=== PATIENT | female | born 1995 | race Caucasian/White ===

== ENCOUNTER 2020-10-09 15:05 | Outpatient (RCR) | payer OTHER, MEDICAID, SELFPAY ==
--- NOTE | 2020-10-09 15:15 | PT.OIE ---
Current Diagnoses Other female genital prolapse (10/09/20) Encounter for supervision of normal , unspecified, unspecified trimester (10/09/20) Visit Care Team Role Provider Type MOO Bowman Attending Provider Non-Staff Family Provider Primary Care Provider Referring Provider Specialty: Obstetrics Address: [address] [place] [address], [id number] Email: Physical Therapy Initial Evaluation PT-OP-A Visit Information Start: 10/09/20 09:01 Freq: Status: Active Protocol: Document 10/09/20 15:15 [facility] (Rec: 10/09/20 17:11 [facility] [email or web address]) Out-Patient Physical Therapy Visit Information Visit Information Visit Type Initial Evaluation Visit Start Time 15:15 Visit Stop Time 16:00 Total Visit Minutes 45 Visit Number 1 PT-OP-B Current Condition Start: 10/09/20 09:01 Freq: Status: Active Protocol: Document 10/09/20 15:15 [facility] (Rec: 10/09/20 15:57 [facility] [id number]) Current Condition History of Current Condition Onset Date 2017 symptoms began after of her daugher s/p vaginal delivery Current Complaints pelvic pressure and heaviness, pelvic pain History of Current Condition approx 3-4 months following the of her first daughter she began feeling symptoms, symptoms went away, she had been bleeding with bowel movements, a rectocele was found and she was sent for a colonoscopy. Interal hemmorhoids were found on colonoscopy. After about 6 months symptoms went away. Now she is 32 weeks and she feels pelvic pressure, she cant get comfortable and she dreads having to switch sides as it hurts. Bending over to grap things hurt, getting up from a chair is painful. Bowel movements make her feel like her bowels are descending. She notes bowel movements are only 2 times per week. SHe notes c/o popping in her pelvis with walking. She describes pain at her pubic bone and walking increases pain. Future Testing and Treatments Planned pt would like to return to PT Treatment Goals Patient/Caregiver Goals treatment goals are to reduce pain and pelvic pressure and stabilize post Current Functional Impairments (Reported) Functional Limitations- ADL's pain with activities that include bending forward Functional Limitations- Other pain with rolling in bed or with a change of positions PT-OP-J Posture/Palpation/Skin Start: 10/09/20 09:01 Freq: Status: Active Protocol: Document 10/09/20 15:15 [facility] (Rec: 10/15/20 10:50 [facility] [email or web address]) Posture Evaluation Position Standing Evaluation View Lateral L-Spine Posture Increased Lordosis Shoulder Posture (L) Forward,(R) Forward Comments Posture Comments pt stands with a increased lumbar lordosis with , she does have slight sciolosis and weightsifts off her left leg due to pubic pain Palpation Assessment Location R PSIS Palpation Location R PSIS Palpation Findings Tenderness pubic symphysis Palpation Findings Tenderness Palpation Details tenderness to palpation at the midline of the pubic symphysis PT-OP-K Range of Motion Start: 10/15/20 10:50 Freq: Status: Active Protocol: Document 10/09/20 15:15 [facility] (Rec: 10/15/20 10:51 [facility] [email or web address]) Lumbar Spine Range of Motion Lumbar Spine Active Testing Position Standing Flexion 50 ROM Limitations Soft Tissue Tightness,Pain Comments increased lumbar lordosis, paraspinal tightness limiting lumbar flexion activities. PT-OP-M Strength Start: 10/09/20 09:01 Freq: Status: Active Protocol: Document 10/09/20 15:15 [facility] (Rec: 10/15/20 10:50 [facility] [email or web address]) Trunk Strength Trunk Manual Muscle Testing Flexion 2+ Poor+ Core Stabilization + April test on the right for SI unlocking, stretch weakness of the transverse abdominal muscles in standing PT-OP-Q Treatments Start: 10/09/20 09:01 Freq: Status: Active Protocol: Document 10/09/20 15:15 [facility] (Rec: 10/15/20 10:50 [facility] [email or web address]) Therapeutic Exercises Other Exercises ball squeeze with pelvic floor recruitment Reps/Minutes x 10 reps Quadruped cat cow Reps/Minutes x 10 reps quadruped TA facilitation Reps/Minutes x 10 reps PT-OP-T Assessment and Plan Start: 10/09/20 09:01 Freq: Status: Active Protocol: Document 10/09/20 15:15 [facility] (Rec: 10/15/20 10:50 [facility] [email or web address]) Physical Therapy Assessment Goals pt is able to return to PT for pelvic floor rehabilitation Impairment pelvic pressure and pelvic floor weakness, decreased core stability Recoating Machine Operator Goal (LTG) Pt is able to return to PT post for pelvic floor rehabilitation and core stabilization exercises LTG Duration 6 weeks or following MD clearance pt is educated in a HEP to address SI instability and pelvic pressure Impairment related SI instability, pelvic pressure Short Term Goal (STG) pt is educated in exercises she can do for the remainder of her to help stabilize her SI joint and decrease tightness of her lumbar spine. She is shown a SI belt and how to wear it to help support her pelvis. STG Duration 1 week Assessment Summary Assessment Holly is a 25 year old female 32 weeks with her second baby who describes pelvic pressure and pain. She has a difficult time voiding and switching positions or bending. She is only having a bowel movement 2 times per week. She also describes pubic pain that is worse on the left. She describes popping of her pelvis with walking. Pt reports she did get diagnosed with a rectocele after her first deliver but this had resolved until now. This is the only visit that oHlly has scheduled prior to her delivery and she is wanting to set up PT post so that we can do a pelvic floor assessment and work on pelvic floor rehab. With examination today Holly is unlockign in her SI joint. She has a slight pubis symphysis seperation. She stands in a anterior pelvic tilt and her lumbar paraspinals are in a shortened position. Holly was educated on SI instability and was shown a SI belt. I did give her a few exercises for that help to stabilize the SI joint and reduce her lumbar lordosis. She was shown how to contract her pelvic floor and transverse abdominals to help with stabilization. She was also shown a sidelying labor position that can help to decrease strain to the pelvic floor with delivery. Holly is a good candidate for PT in the post period for core stabilization and pelvic floor rehabilitation Physical Therapy Plan Frequency and Duration Frequency of Treatment 1x/Week Duration of Treatment 8 Plan of Care Start Date 10/09/20 Plan of Care End Date 11/26/20 Therapeutic Interventions Therapeutic Interventions Home Exercise Program,Manual Therapy,Neuromuscular Re- education,Patient/Caregiver Education,Self-Care/Home Management,Soft Tissue Mobilization,Therapeutic Exercises Modalities Biofeedback Next Visit Focus/Plan Next Note Type Treatment Note Next Visit Plan pt to return after her 6 week check up to begin pelvic floor and core training rehabilitation
--- NOTE | 2020-10-15 11:11 | PT.OPPOC ---
Physical, Occupational & Speech Therapy At [facility] Current Diagnoses Other female genital prolapse (10/09/20) Encounter for supervision of normal , unspecified, unspecified trimester (10/09/20) Visit Care Team Role Provider Type MOO Bowman Attending Provider Non-Staff Family Provider Primary Care Provider Referring Provider Specialty: Obstetrics Address: [address] [place] [address], [facility] Email: Plan Of Care PT-OP-T Assessment and Plan Start: 10/09/20 09:01 Freq: Status: Active Protocol: Document 10/09/20 15:15 [facility] (Rec: 10/15/20 10:50 [facility] [email or web address]) Physical Therapy Assessment Goals pt is able to return to PT for pelvic floor rehabilitation Impairment pelvic pressure and pelvic floor weakness, decreased core stability Track Grinder Goal (LTG) Pt is able to return to PT post for pelvic floor rehabilitation and core stabilization exercises LTG Duration 6 weeks or following MD clearance pt is educated in a HEP to address SI instability and pelvic pressure Impairment related SI instability, pelvic pressure Short Term Goal (STG) pt is educated in exercises she can do for the remainder of her to help stabilize her SI joint and decrease tightness of her lumbar spine. She is shown a SI belt and how to wear it to help support her pelvis. STG Duration 1 week Assessment Summary Assessment Holly is a 25 year old female 32 weeks with her second baby who describes pelvic pressure and pain. She has a difficult time voiding and switching positions or bending. She is only having a bowel movement 2 times per week. She also describes pubic pain that is worse on the left. She describes popping of her pelvis with walking. Pt reports she did get diagnosed with a rectocele after her first deliver but this had resolved until now. This is the only visit that Holly has scheduled prior to her delivery and she is wanting to set up PT post so that we can do a pelvic floor assessment and work on pelvic floor rehab. With examination today Holly is unlocking in her SI joint. She has a slight pubis symphysis separation. She stands in a anterior pelvic tilt and her lumbar paraspinals are in a shortened position. Holly was educated on SI instability and was shown a SI belt. I did give her a few exercises for that help to stabilize the SI joint and reduce her lumbar lordosis. She was shown how to contract her pelvic floor and transverse abdominals to help with stabilization. She was also shown a sidelying labor position that can help to decrease strain to the pelvic floor with delivery. Holly is a good candidate for PT in the post period for core stabilization and pelvic floor rehabilitation Physical Therapy Plan Frequency and Duration Frequency of Treatment 1x/Week Duration of Treatment 8 Plan of Care Start Date 10/09/20 Plan of Care End Date 11/26/20 Therapeutic Interventions Therapeutic Interventions Home Exercise Program,Manual Therapy,Neuromuscular Re- education,Patient/Caregiver Education,Self-Care/Home Management,Soft Tissue Mobilization,Therapeutic Exercises Modalities Biofeedback Next Visit Focus/Plan Next Note Type Treatment Note Next Visit Plan pt to return after her 6 week check up to begin pelvic floor and core training rehabilitation Plan of Care Dates Plan of Care Start Date 10/09/20 Plan of Care End Date 11/26/20 Electronically Signed by: Rhonda Hathaway, PT 10/15/20 1111 Please Sign and Return: I have reviewed this Plan of Care and certify that the skilled therapy services above are required to meet the patient?s needs. Physician Signature Date Printed Name and Credentials Clinical Instructor Signature Printed Name and Credentials
== END 2021-03-17 08:32 ==
LOC: PHYS 15:05
PROVIDERS: Family Provider Nurse Practitioner Obstetrics & Gynecology; PCP Nurse Practitioner Obstetrics & Gynecology; Referring Provider Nurse Practitioner Obstetrics & Gynecology; Visit Provider Nurse Practitioner Obstetrics & Gynecology
DX: Z34.90 Encounter for supervision of normal pregnancy, unspecified, unspecified trimester (principal); N81.89 Other female genital prolapse
CPT/HCPCS: 97161

== ENCOUNTER 2022-04-25 14:48 | Emergency (ER) | payer OTHER, MEDICAID, SELFPAY ==
[2022-04-25 15:00] VITALS: BP 88/55; PULSE 70; RESP 16; TEMP 36.2; O2SAT 99; BMI 22.8
[2022-04-25 15:24] VITALS: PULSE 64; O2SAT 97
[2022-04-25 15:25] VITALS: BP 94/58; PULSE 67; O2SAT 99
[2022-04-25] MEDS: SODIUM CHLORIDE 0.9% 1,000 ML 1000 ML IV (15:25)
--- NOTE | 2022-04-25 15:26 | ED_ITS ---
HPI - Abdominal Pain <MOO Capone - Last Filed: 04/25/22 16:30> General Chief Complaint: Abdominal Pain Stated Complaint: vomiting, abd pain x7 days Time Seen by Provider: 04/25/22 15:15 Source: patient Mode of arrival: Ambulatory History of Present Illness HPI narrative: This is a 27-year-old female presents to the emergency department complaining of vomiting, diarrhea, and states her symptoms worse over the last 2 days. She complains of epigastric pain now, states that her boyfriend and her son have similar symptoms. She denies cough, shortness of breath sore throat but endorses ringing in her ears, dry mouth, not tolerating anything to eat or drink today. She complains of epigastric burning kind of like heartburn. Denies abnormal vaginal discharge, states her last menses was 3 weeks ago, denies pelvic pain, urinary frequency or urgency. She denies any blood in her emesis or her stool. Denies history of abdominal surgery. Denies back pain, flank pain, muscle cramps or dizziness. States that she is felt hot and cold but has not measured a fever. She is an infant Related Data Previous Rx's Medication Instructions Recorded clotrimazole 1 % topical cream 1 applic topical TID #30 grams 04/21/22 mupirocin 2 % topical ointment 1 applic topical TID #22 grams 04/21/22 omeprazole 20 mg capsule,delayed 20 mg PO DAILY #20 caps 04/25/22 release ondansetron 4 mg disintegrating 4 mg PO Q8H PRN nausea and 04/25/22 tablet vomiting #10 tabs Allergies Allergy/AdvReac Type Severity Reaction Status Date / Time INGREDIENT: NO KNOWN - NO Allergy Unknown Uncoded 04/25/22 15:06 KNOWN DRUG ALLERGY Review of Systems <MOO Capone - Last Filed: 04/25/22 16:30> Review of Systems ROS Unobtainable: All systems reviewed & are unremarkable except as noted in HPI and below Patient History <MOO Capone - Last Filed: 04/25/22 16:30> Social History Smoking Status: Never smoker Smoking Status: Never smoker Substance Use Type: does not use Exam <MOO Capone - Last Filed: 04/25/22 16:30> Narrative Exam Narrative: Reviewed vitals signs and nursing notes. General: cooperative, in no acute distress, well groomed, lying in bed, appears tired, HEENT: symmetrical facial expressions, dry mucous membranes, neck is supple CV: regular rate and rhythm, warm extremities Respiratory: Without abnormal breath sounds, normal work of breathing, without tachypnea, hypoxia. GI: abdomen soft, nontender to palpation in all quadrants, no tenderness over bilateral ovaries, no CVAT bilaterally, abdomen is flat, nondistended, without masses, rebound tenderness or CVA tenderness bilaterally. MSK: moves all extremities, neurovascularly intact, no weakness, normal tone Skin: brisk capillary refill, without rash or wound Neuro: normal speech and cognition, A&O x3, ambulatory, clear speech, flat affect Initial Vital Signs Initial Vital Signs: Vital Signs Temperature 97.2 F L 04/25/22 15:00 Pulse Rate 70 04/25/22 15:00 Respiratory Rate 16 04/25/22 15:00 Blood Pressure 88/55 L 04/25/22 15:00 Pulse Oximetry 99 04/25/22 15:00 Oxygen Delivery Method Room Air 04/25/22 15:00 <Pancho García DO - Last Filed: 04/25/22 16:19> Initial Vital Signs Initial Vital Signs: Vital Signs Temperature 97.2 F L 04/25/22 15:00 Pulse Rate 70 04/25/22 15:00 Respiratory Rate 16 04/25/22 15:00 Blood Pressure 88/55 L 04/25/22 15:00 Pulse Oximetry 99 04/25/22 15:00 Oxygen Delivery Method Room Air 04/25/22 15:00 Course <MOO Capone - Last Filed: 04/25/22 16:30> Orders Ordered: ED Orders 04/25/22 15:22 Complete Blood Count AUTO DIFF Stat Comprehensive Metabolic Panel Stat Lipase Stat 04/25/22 15:28 Magnesium Stat 04/25/22 15:44 Respiratory Panel (Film Array) Stat Ondansetron HCl (Ondansetron 4 Mg Odt) 4 mg PO NOW PRN PRN Reason: Nausea And Vomiting Ondansetron HCl (Ondansetron 4 Mg/2 Ml Inj) 4 mg IV NOW PRN PRN Reason: Nausea And Vomiting Last Admin: 04/25/22 15:30 Dose: 4 mg Discontinued Medications Sodium Chloride (Normal Saline 0.9%) 1,000 mls @ 1,000 mls/hr IV BOLUS ONE Stop: 04/25/22 16:19 Last Admin: 04/25/22 15:25 Dose: 1,000 mls/hr Documented By: ZENA Pantoprazole Sodium (Pantoprazole 40 Mg Vial) 20 mg IV NOW ONE Stop: 04/25/22 15:42 Last Admin: 04/25/22 15:50 Dose: 20 mg Vital Signs Vital signs: Vital Signs - 8 hr 04/25/22 15:00 04/25/22 15:24 04/25/22 15:25 Temperature 97.2 F L Pulse Rate 70 64 Respiratory Rate 16 Blood Pressure 88/55 L 94/58 L Pulse Oximetry 99 97 Oxygen Delivery Method Room Air 04/25/22 15:25 04/25/22 15:30 04/25/22 15:30 Temperature Pulse Rate 67 71 Respiratory Rate Blood Pressure 99/60 Pulse Oximetry 99 99 Oxygen Delivery Method <Pancho García DO - Last Filed: 04/25/22 16:19> Orders Ordered: ED Orders 04/25/22 15:22 Complete Blood Count AUTO DIFF Stat Comprehensive Metabolic Panel Stat Lipase Stat 04/25/22 15:28 Magnesium Stat 04/25/22 15:44 Respiratory Panel (Film Array) Stat Ondansetron HCl (Ondansetron 4 Mg Odt) 4 mg PO NOW PRN PRN Reason: Nausea And Vomiting Ondansetron HCl (Ondansetron 4 Mg/2 Ml Inj) 4 mg IV NOW PRN PRN Reason: Nausea And Vomiting Last Admin: 04/25/22 15:30 Dose: 4 mg Discontinued Medications Sodium Chloride (Normal Saline 0.9%) 1,000 mls @ 1,000 mls/hr IV BOLUS ONE Stop: 04/25/22 16:19 Last Admin: 04/25/22 15:25 Dose: 1,000 mls/hr Documented By: ZENA Pantoprazole Sodium (Pantoprazole 40 Mg Vial) 20 mg IV NOW ONE Stop: 04/25/22 15:42 Last Admin: 04/25/22 15:50 Dose: 20 mg Vital Signs Vital signs: Vital Signs - 8 hr 04/25/22 15:00 04/25/22 15:24 04/25/22 15:25 Temperature 97.2 F L Pulse Rate 70 64 Respiratory Rate 16 Blood Pressure 88/55 L 94/58 L Pulse Oximetry 99 97 Oxygen Delivery Method Room Air 04/25/22 15:25 04/25/22 15:30 04/25/22 15:30 Temperature Pulse Rate 67 71 Respiratory Rate Blood Pressure 99/60 Pulse Oximetry 99 99 Oxygen Delivery Method MDM - Abdominal Pain <Angle Darnell, HOSPICE REGISTERED NURSE - Last Filed: 04/25/22 16:30> Lab Data 04/25/22 15:22 04/25/22 15:22 Labs: Lab Results 04/25/22 04/25/22 04/25/22 Range/Units 15:22 15:22 15:28 WBC 5.4 (4.5-11.0) X10^3/uL RBC 4.12 (4.0-5.2) X10^6/uL Hgb 12.4 (12.0-16.0) g/dL Hct 36.4 (36-46) % MCV 88.3 (80-100) fL MCH 30.1 (26-34) PG MCHC 34.1 (30-36) % RDW 12.5 (11.6-14.8) % Plt Count 246 (150-400) X10^3/uL Neut % (Auto) 67.2 (50-75) % Lymph % (Auto) 23.5 L (25-40) % [place] % (Auto) 8.4 (3-14) % Eos % (Auto) 0.7 L (2-4) % Baso % (Auto) 0.2 (0-2) % Neut # (Auto) 3600 (7049-1199) /uL Lymph # (Auto) 1300 (3537-3913) /uL [place]lan # (Auto) 500 (0-900) /uL Eos # (Auto) 0 (0-450) /uL Baso # (Auto) 0 (0-100) /uL Sodium 138 (137-145) mmol/L Potassium 3.9 (3.4-5.1) mmol/L Chloride 104 (98-107) mmol/L Carbon Dioxide 25 (22-32) mmol/L BUN 9 (7-17) mg/dL Creatinine 0.59 (0.52-1.04) mg/dL Estimated GFR > 60 (>60) mL/min BUN/Creatinine Ratio 15.3 (6-22) Glucose 88 (70-100) mg/dL Calcium 8.9 (8.4-10.2) mg/dL Magnesium 1.7 (1.6-2.3) mg/dL Total Bilirubin 1.4 H (0.2-1.3) mg/dL AST 22 (14-36) IU/L ALT 21 (<35) IU/L Alkaline Phosphatase 64 (38-126) U/L Total Protein 7.6 (6.3-8.2) g/dL Albumin 4.3 (3.5-5.0) g/dL Globulin 3.3 (1.7-4.1) g/dL Albumin/Globulin Ratio 1.3 (1.0-2.8) Lipase 62 (23-300) U/L Point of care testing: Point of Care Testing Test Results Negative Urine Dip Bedside Urine Glucose Negative Bedside Urine Bilirubin - Negative Bedside Urine Ketone - Negative Urine Specific [place] 1.020 Bedside Urine Occult Blood - Negative Bedside Urine pH 6.0 Bedside Urine Protein - Negative Bedside Urine Urobilinogen - Negative Bedside Urine Nitrite - Negative Bedside Urine Leukocytes - Negative Esterase MDM Narrative Medical decision making narrative: Chief Complaint: Nausea vomiting Independent historian: Patient Differential diagnoses include but are not limited to: Acute viral process, gastritis, gastric ulcer, biliary disease, gastroenteritis, GERD, bowel obstruction, perforated viscus, appendicitis, colitis, diverticulitis, IBD/IBS, intestinal ischemia, obstructive uropathy, acute cystitis, pyelonephritis, ovarian cyst, ectopic , ovarian mass/cyst, torsion, PID Pertinent lab findings reviewed: CBC with mild lymphopenia total bilirubin of 1.4, likely secondary to dehydration, lipase 62 without other abnormalities on her chemistry or elevated liver enzymes, abdomen was nontender to palpation. Respiratory panel is pending, will follow-up and call her if it is positive for COVID, influenza a or B. Urine is negative Basic lab work and IV fluid bolus was ordered as patient has been vomiting today, plan for Zofran, lab work, serial abdominal exams, and reassessment No peritoneal signs on abdominal exam. Patient is now p.o. tolerant. Discussed return precautions, overall her lab work was unremarkable and she feels much better after IV hydration. Serial abdominal exam without increase in abdominal pain. Extensive conversation about ER return precautions and need for close follow-up.I have independently reviewed the patient's vital signs and nursing notes as well as prior records if available. Social considerations that may affect disposition: none Questions are addressed and there is agreement with the plan and for follow-up. Patient is appropriate for outpatient management. MIPS: This encounter doesn't have any diagnosis' associated with MIPS criteria. <Pancho Ricky, DO - Last Filed: 04/25/22 16:19> Lab Data Labs: Lab Results 04/25/22 04/25/22 04/25/22 Range/Units 15:22 15:22 15:28 WBC 5.4 (4.5-11.0) X10^3/uL RBC 4.12 (4.0-5.2) X10^6/uL Hgb 12.4 (12.0-16.0) g/dL Hct 36.4 (36-46) % MCV 88.3 (80-100) fL MCH 30.1 (26-34) PG MCHC 34.1 (30-36) % RDW 12.5 (11.6-14.8) % Plt Count 246 (150-400) X10^3/uL Neut % (Auto) 67.2 (50-75) % Lymph % (Auto) 23.5 L (25-40) % [place] % (Auto) 8.4 (3-14) % Eos % (Auto) 0.7 L (2-4) % Baso % (Auto) 0.2 (0-2) % Neut # (Auto) 3600 (2699-7693) /uL Lymph # (Auto) 1300 (7720-7184) /uL [place] # (Auto) 500 (0-900) /uL Eos # (Auto) 0 (0-450) /uL Baso # (Auto) 0 (0-100) /uL Sodium 138 (137-145) mmol/L Potassium 3.9 (3.4-5.1) mmol/L Chloride 104 (98-107) mmol/L Carbon Dioxide 25 (22-32) mmol/L BUN 9 (7-17) mg/dL Creatinine 0.59 (0.52-1.04) mg/dL Estimated GFR > 60 (>60) mL/min BUN/Creatinine Ratio 15.3 (6-22) Glucose 88 (70-100) mg/dL Calcium 8.9 (8.4-10.2) mg/dL Magnesium 1.7 (1.6-2.3) mg/dL Total Bilirubin 1.4 H (0.2-1.3) mg/dL AST 22 (14-36) IU/L ALT 21 (<35) IU/L Alkaline Phosphatase 64 (38-126) U/L Total Protein 7.6 (6.3-8.2) g/dL Albumin 4.3 (3.5-5.0) g/dL Globulin 3.3 (1.7-4.1) g/dL Albumin/Globulin Ratio 1.3 (1.0-2.8) Lipase 62 (23-300) U/L Point of care testing: Point of Care Testing Test Results Negative Urine Dip Bedside Urine Glucose Negative Bedside Urine Bilirubin - Negative Bedside Urine Ketone - Negative Urine Specific [place] 1.020 Bedside Urine Occult Blood - Negative Bedside Urine pH 6.0 Bedside Urine Protein - Negative Bedside Urine Urobilinogen - Negative Bedside Urine Nitrite - Negative Bedside Urine Leukocytes - Negative Esterase Discharge Plan Departure Patient Disposition: Home Clinical Impression: Viral respiratory illness Vomiting Qualifiers: Vomiting type: unspecified Nausea presence: with nausea Qualified Code(s): R11.2 - Nausea with vomiting, unspecified Gastritis Qualifiers: Gastritis type: other gastritis Chronicity: acute Gastritis bleeding: without bleeding Qualified Code(s): K29.00 - Acute gastritis without bleeding Instructions: Common Cold, DI for Gastritis, DI for Vomiting -- Adult Activity Restrictions/Additional Instructions: *You have been diagnosed with this is most likely a viral illness causing the vomiting. It responded well to the fluid, I think you are mostly dehydrated and having some gastritis symptoms with your epigastric pain. Please use Tums as needed to help coat your stomach, and in the mornings take omeprazole before any food to reduce the acid secretion. Please use Tylenol as needed for fever, p rogress her diet gradually, use Zofran as needed for nausea vomiting, please come back for new or worsening symptoms. We will call you if the viral panel is positive for COVID, influenza, or another viral illness of concern. Thank you for coming in today, I hope you feel better soon. *What to do: *Please continue to take your regular medications as directed. [x ] New medication prescriptions sent to your pharmacy: [ [facility]] [ ] New medication written as a paper prescription [ ] No new medications given *Please follow up with your primary care provider in 2-3 days, call for an appointment. Let them know you were seen in the Emergency Department and that we asked that you be seen for follow-up. We will electronically transmit a record of today's note if your PCP is in our system *If you do not have a primary care provider please contact [phone] to establish care with one of the [facility] primary care providers. *Return to Emergency Department if you should have any new, worsening, or concerning symptoms, such as [fever greater than 101F, chills, worsening pain, persistent vomiting or other bothersome symptoms]. Prescriptions: New omeprazole 20 mg capsule,delayed release(DR/EC) 20 mg PO DAILY Qty: 20 0RF ondansetron 4 mg tablet,disintegrating 4 mg PO Q8H PRN (Reason: nausea and vomiting) Qty: 10 0RF No Action clotrimazole 1 % cream 1 applic topical TID Qty: 30 0RF mupirocin 2 % ointment 1 applic topical TID Qty: 22 0RF Referrals: Samreen Virk ARNP [Primary Care Provider] - Stand Alone Forms: Patient Portal/API <Pancho García, DO - Last Filed: 04/25/22 16:19> [facility]: Dr García Co-Sign Statement: I was available for consultation during this patient's emergency department visit. This chart is signed by myself for administrative purposes only. I did not have direct contact with this patient during this visit. They were seen independently by the APC.
[2022-04-25 15:30] VITALS: BP 99/60; PULSE 71; O2SAT 99
[2022-04-25] MEDS: ONDANSETRON 4 MG/2 ML INJ IV (15:30)
[2022-04-25 15:32] LABS: Add Manual Diff / Slide Review NO; Basophils Absolute Auto 0 /uL (0-100); Basophils Percent Auto 0.2 % (0-2); Eosinophils Absolute Auto 0 /uL (0-450); Eosinophils Percent Auto 0.7 % (2-4); Hematocrit 36.4 % (36-46); Hemoglobin 12.4 g/dL (12.0-16.0); Lymphocytes Absolute Auto 1300 /uL (1100-4500); Lymphocytes Percent Auto 23.5 % (25-40); Mean Corpuscular HGB Conc 34.1 % (30-36); Mean Corpuscular Hemoglobin 30.1 PG (26-34); Mean Corpuscular Volume 88.3 fL (80-100); Monocytes Absolute Auto 500 /uL (0-900); Monocytes Percent Auto 8.4 % (3-14); Neutrophils Absolute Auto 3600 /uL (1500-7000); Neutrophils Percent Auto 67.2 % (50-75); Platelet Count 246 X10^3/uL (150-400); Red Blood Cell Count 4.12 X10^6/uL (4.0-5.2); Red Cell Distribution Width 12.5 % (11.6-14.8); White Blood Cell Count 5.4 X10^3/uL (4.5-11.0)
[2022-04-25 15:47] LABS: Magnesium 1.7 mg/dL (1.6-2.3)
[2022-04-25 15:48] LABS: Alanine Aminotransferase 21 IU/L (<35); Albumin 4.3 g/dL (3.5-5.0); Albumin Globulin Ratio 1.3 (1.0-2.8); Alkaline Phosphatase 64 U/L (38-126); Aspartate Aminotransferase 22 IU/L (14-36); BUN Creatinine Ratio 15.3 (6-22); Bilirubin Total 1.4 mg/dL (0.2-1.3); Blood Urea Nitrogen 9 mg/dL (7-17); Calcium 8.9 mg/dL (8.4-10.2); Carbon Dioxide 25 mmol/L (22-32); Chloride 104 mmol/L (98-107); Estimated Glomerular Filt Rate > 60 mL/min (>60); Globulin 3.3 g/dL (1.7-4.1); Glucose 88 mg/dL (70-100); HEMOLYSIS < 15 (0-50); Lipase 62 U/L (23-300); Potassium 3.9 mmol/L (3.4-5.1); Sodium 138 mmol/L (137-145); Total Protein 7.6 g/dL (6.3-8.2)
[2022-04-25] MEDS: PANTOPRAZOLE 40 MG VIAL 20 MG IV (15:50)
--- NOTE | 2022-04-25 15:56 | PC.NURSE ---
pt states she started feeling sick this week. her and two children were sick a couple weeks ago but now she thinks she has it. pt states she has had vomiting and describes heartburn like symptoms with the vomiting. pt feels worse laying down and states certain smells make her nausea worse. pt does not use control and is currently breast feeding.
[2022-04-25 16:00] VITALS: BP 92/54; PULSE 68; O2SAT 100
[2022-04-25 16:39] LABS: Adenovirus Not Detected (Not Detect)
[2022-04-25 16:40] LABS: B. parapertussis Not Detected (Not Detecte); Bordetella pertussis Not Detected (Not Detecte); Chlamydophila pneumoniae Not Detected (Not Detect); Coronavirus 229E Not Detected (Not Detect); Coronavirus HKU1 Not Detected (Not Detect); Coronavirus NL 63 Not Detected (Not Detect); Coronavirus OC43 Not Detected (Not Detect); Human Metapneumovirus Not Detected (Not Detect); Human Rhinovirus/Enterovirus Not Detected (Not Detect); Influenza A Not Detected (Not Detect); Influenza B Not Detected (Not Detect); Mycoplasma pneumoniae Not Detected (Not Detect); Parainfluenza Virus 1 Not Detected (Not Detect); Parainfluenza Virus 2 Not Detected (Not Detect); Parainfluenza Virus 3 Not Detected (Not Detect); Parainfluenza Virus 4 Not Detected (Not Detect); Respiratory Syncytial Virus Not Detected (Not Detect); SARS- CoV-2 Not Detected (Not Detecte)
== END 2022-04-25 16:49 | disposition home or self-care (01) ==
PROVIDERS: Emergency Medicine; Emergency Provider Nurse Practitioner Critical Care Medicine; Family Provider Nurse Practitioner Obstetrics & Gynecology; PCP Nurse Practitioner Obstetrics & Gynecology
DX: K29.00 Acute gastritis without bleeding (principal); R11.2 Nausea with vomiting, unspecified; J98.8 Other specified respiratory disorders; Z20.822 Contact with and (suspected) exposure to COVID-19
CPT/HCPCS: 36415; 80053; 81003; 81025; 83690; 83735; 85025; 87633; 96361; 96374; 96375; 99284; C9113; J2405

== ENCOUNTER → 2022-06-16 18:21 | Outpatient (CLI) | payer OTHER, MEDICAID, SELFPAY | PROVIDERS: Family Provider Nurse Practitioner Obstetrics & Gynecology; PCP Nurse Practitioner Obstetrics & Gynecology; Visit Provider Nurse Practitioner Family | DX: N89.8 Other specified noninflammatory disorders of vagina (principal) | CPT/HCPCS: 87210 ==

== ENCOUNTER 2022-07-19 14:04 | Emergency (ER) | payer OTHER, MEDICAID, SELFPAY ==
[2022-07-19 14:26] VITALS: BP 117/80; PULSE 75; RESP 16; TEMP 36.9; O2SAT 99; BMI 22.8
--- NOTE | 2022-07-19 14:54 | DI.RAD.S_ITS ---
PROCEDURE: XR CHEST 1V INDICATIONS: chest pain TECHNIQUE: One view of the chest was acquired. COMPARISON: None. FINDINGS: Surgical changes and devices: None. Lungs and pleura: Lungs are clear. No pleural effusions or pneumothorax. Mediastinum: Mediastinal contours appear normal. Heart size is normal. Bones and chest wall: No suspicious bony lesions. Overlying soft tissues appear unremarkable. IMPRESSION: No acute cardiopulmonary findings Approved by: Patricio Grider M.D. on 07/19/2022 at 15:34
[2022-07-19 15:07] LABS: Alanine Aminotransferase 15 IU/L (<35); Albumin 4.7 g/dL (3.5-5.0); Albumin Globulin Ratio 1.4 (1.0-2.8); Alkaline Phosphatase 48 U/L (38-126); Aspartate Aminotransferase 19 IU/L (14-36); Bilirubin Total 1.6 mg/dL (0.2-1.3); Blood Urea Nitrogen 8 mg/dL (7-17); Calcium 9.5 mg/dL (8.4-10.2); Carbon Dioxide 25 mmol/L (22-32); Chloride 102 mmol/L (98-107); Creatine Kinase 61 U/L (30-135); Estimated Glomerular Filt Rate > 60 mL/min (>60); Globulin 3.3 g/dL (1.7-4.1); Glucose 98 mg/dL (70-100); HEMOLYSIS < 15 (0-50); Lipase 39 U/L (23-300); Magnesium 1.8 mg/dL (1.6-2.3); Potassium 3.6 mmol/L (3.4-5.1); Sodium 137 mmol/L (137-145)
[2022-07-19 15:10] LABS: INR 1.2 (0.9-1.3); Prothrombin Time 13.4 SECONDS (10.1-12.7)
[2022-07-19 15:13] LABS: PTT Partial Thromboplastin Tim 32 SECONDS (26-36)
[2022-07-19 15:17] LABS: Troponin I < 0.012 ng/mL (0.01-0.034)
[2022-07-19 15:26] LABS: Add Manual Diff / Slide Review NO; Basophils Absolute Auto 0 /uL (0-100); Basophils Percent Auto 0.4 % (0-2); Eosinophils Absolute Auto 100 /uL (0-450); Hematocrit 37.2 % (36-46); Hemoglobin 12.7 g/dL (12.0-16.0); Lymphocytes Absolute Auto 2300 /uL (1100-4500); Lymphocytes Percent Auto 32.3 % (25-40); Mean Corpuscular HGB Conc 34.2 % (30-36); Mean Corpuscular Hemoglobin 30.5 PG (26-34); Mean Corpuscular Volume 89.2 fL (80-100); Monocytes Absolute Auto 300 /uL (0-900); Monocytes Percent Auto 4.8 % (3-14); Neutrophils Absolute Auto 4400 /uL (1500-7000); Neutrophils Percent Auto 61.5 % (50-75); Platelet Count 311 X10^3/uL (150-400); Red Blood Cell Count 4.16 X10^6/uL (4.0-5.2); Red Cell Distribution Width 12.8 % (11.6-14.8); White Blood Cell Count 7.2 X10^3/uL (4.5-11.0)
[2022-07-19 16:32] VITALS: BP 115/68; PULSE 60; RESP 16; O2SAT 99
--- NOTE | 2022-07-19 16:46 | ED_ITS ---
HPI - Dizziness <Sarah Arguello PA-C - Last Filed: 07/19/22 16:51> General Chief Complaint: Dizziness Stated Complaint: Shaky/head spinning/heart drops/t-0 Time Seen by Provider: 07/19/22 16:35 History of Present Illness HPI Narrative: 27-year-old female presents to the ED with 1 day of dizziness. Patient states she awoke this morning, felt the room spinning around her, felt somewhat clammy and nauseous. Patient denies fever, chills, cough, rhinorrhea, sore throat, chest pain, shortness of breath, vomiting, abdominal pain, syncope. Patient states she has had a few prior episodes of this in the past. Related Data Previous Rx's Medication Instructions Recorded clotrimazole 1 % topical cream 1 applic topical TID #30 grams 04/21/22 mupirocin 2 % topical ointment 1 applic topical TID #22 grams 04/21/22 omeprazole 20 mg capsule,delayed 20 mg PO DAILY #20 caps 04/25/22 release ondansetron 4 mg disintegrating 4 mg PO Q8H PRN nausea and 04/25/22 tablet vomiting #10 tabs meclizine 12.5 mg tablet 12.5 mg PO TID PRN dizziness #20 07/19/22 tabs Allergies Allergy/AdvReac Type Severity Reaction Status Date / Time No Known Drug Allergies Allergy Verified 07/19/22 14:32 Review of Systems <Sarah Arguello PA-C - Last Filed: 07/19/22 16:51> Review of Systems ROS Unobtainable: All systems reviewed & are unremarkable except as noted in HPI and below Constitutional Constitutional: Denies chills, Denies fatigue, Denies fever(s), Denies frequent falls, Denies lethargy and Denies weakness Comments: clammy Eyes Eyes: Denies change in vision, Denies eye discharge, Denies irritation and Denies loss of vision ENT Ears, Nose, Mouth, and Throat: Denies change in voice, Reports dizziness, Denies neck pain, Denies sore throat and Denies throat swelling Cardiovascular Cardiovascular: Denies chest pain, Denies irregular heart rhythm, Denies lightheadedness, Denies palpitations, Denies dyspnea, Denies dyspnea on exertion and Denies orthopnea Respiratory Respiratory: Denies cough, Denies dyspnea, Denies dyspnea on exertion and Denies wheezing Gastrointestinal Gastrointestinal: Denies abdominal pain, Denies change in bowel habits, Denies diarrhea, Reports nausea and Denies vomiting Genitourinary Genitourinary: Denies hematuria, Denies flank pain, Denies urinary incontinence and Denies urinary urgency Musculoskeletal Musculoskeletal: Denies back pain, Denies muscle weakness, Denies neck pain, Den ies numbness and Denies tingling Integumentary/Breasts Skin/Breast: Denies pruritus, Denies erythema, Denies rash and Denies wounds Neurologic Neurologic: Denies behavioral changes, Denies confusion, Reports dizziness, Denies frequent falls, Denies loss of vision, Denies numbness, Denies tingling and Denies weakness Psychiatric Psychiatric: Denies anxiety, Denies behavioral changes, Denies confusion, Denies depression, Denies homicidal ideation and Denies suicidal ideation Endocrine Endocrine: Denies fatigue, Denies flushing and Denies palpitations Hematologic/Lymphatic Hematologic/Lymphatic: Denies easy bruising Allergic/Immunologic Allergic/Immunologic: Denies urticaria, Denies throat swelling and Denies wheezing Patient History <Sarah Arguello PA-C - Last Filed: 07/19/22 16:51> Social History Smoking Status: Never smoker Smoking Status: Never smoker Substance Use Type: does not use Exam <Sarah Arguello PA-C - Last Filed: 07/19/22 16:51> Narrative Exam Narrative: Const General:?cooperative, healthy appearing and comfortable [facility] Head:?normal to inspection Ears:?hearing grossly normal bilaterally Nose:?external nose normal Face and sinus:?normal facial exam and sinuses nontender Mouth:?oral mucosae normal Throat:?posterior oropharynx normal Eyes General:?appearance normal, both eyes and all related structures Neck Neck:?normal visual inspection and no lymphadenopathy noted Resp Effort & Inspection:?normal respiratory effort Auscultation:?clear to auscultation bilaterally Cardio Rate:?regular rate Rhythm:?regular rhythm Neuro General:?patient alert, patient awake and patient oriented x3; PERRLA; CN through 12 intact bilaterally; gait normal Initial Vital Signs Initial Vital Signs: Vital Signs Temperature 98.5 F 07/19/22 14:26 Pulse Rate 75 07/19/22 14:26 Respiratory Rate 16 06/05/23 14:26 Blood Pressure 117/80 07/19/22 14:26 Pulse Oximetry 99 07/19/22 14:26 Oxygen Delivery Method Room Air 07/19/22 14:26 <Bacilio Borrero MD - Last Filed: 07/24/22 12:37> Initial Vital Signs Initial Vital Signs: Vital Signs Temperature 98.5 F 07/19/22 14:26 Pulse Rate 75 07/19/22 14:26 Respiratory Rate 16 07/19/22 14:26 Blood Pressure 117/80 07/19/22 14:26 Pulse Oximetry 99 07/19/22 14:26 Oxygen Delivery Method Room Air 07/19/22 14:26 Course <Sarah Arguello PA-C - Last Filed: 07/19/22 16:51> Orders Ordered: ED Orders 07/19/22 14:37 Complete Blood Count AUTO DIFF Stat Comprehensive Metabolic Panel Stat Lipase Stat Magnesium Stat PTT Partial Thromboplastin Jamie Stat Prothrombin Time INR Stat Troponin & CK Cardiac Panel Stat 07/19/22 14:44 EKG-12 Lead Stat 07/19/22 14:54 XR chest 1V Stat Vital Signs Vital signs: Vital Signs - 8 hr 07/19/22 14:26 07/19/22 16:32 Temperature 98.5 F Pulse Rate 75 60 Respiratory Rate 16 16 Blood Pressure 117/80 115/68 Pulse Oximetry 99 99 Oxygen Delivery Method Room Air Room Air <Bacilio Borrero MD - Last Filed: 07/24/22 12:37> Orders Ordered: ED Orders 07/19/22 14:37 Complete Blood Count AUTO DIFF Stat Comprehensive Metabolic Panel Stat Lipase Stat Magnesium Stat PTT Partial Thromboplastin Jamie Stat Prothrombin Time INR Stat Troponin & CK Cardiac Panel Stat 07/19/22 14:44 EKG-12 Lead Stat 07/19/22 14:54 XR chest 1V Stat Vital Signs Vital signs: Vital Signs - 8 hr 07/19/22 14:26 07/19/22 16:32 Temperature 98.5 F Pulse Rate 75 60 Respiratory Rate 16 16 Blood Pressure 117/80 115/68 Pulse Oximetry 99 99 Oxygen Delivery Method Room Air Room Air MDM - Dizziness <Sarah Arguello PA-C - Last Filed: 07/19/22 16:51> Lab Data 07/19/22 14:37 07/19/22 14:37 Labs: Lab Results 07/19/22 07/19/22 07/19/22 Range/Units 14:37 14:37 14:37 WBC 7.2 (4.5-11.0) X10^3/uL RBC 4.16 (4.0-5.2) X10^6/uL Hgb 12.7 (12.0-16.0) g/dL Hct 37.2 (36-46) % MCV 89.2 (80-100) fL MCH 30.5 (26-34) PG MCHC 34.2 (30-36) % RDW 12.8 (11.6-14.8) % Plt Count 311 (150-400) X10^3/uL Neut % (Auto) 61.5 (50-75) % Lymph % (Auto) 32.3 (25-40) % [place] % (Auto) 4.8 (3-14) % Eos % (Auto) 1.0 L (2-4) % Baso % (Auto) 0.4 (0-2) % Neut # (Auto) 4400 (9723-1564) /uL Lymph # (Auto) 2300 (8763-1575) /uL [place] # (Auto) 300 (0-900) /uL Eos # (Auto) 100 (0-450) /uL Baso # (Auto) 0 (0-100) /uL PT 13.4 H (10.1-12.7) SECONDS INR 1.2 (0.9-1.3) APTT 32 (26-36) SECONDS Sodium 137 (137-145) mmol/L Potassium 3.6 (3.4-5.1) mmol/L Chloride 102 (98-107) mmol/L Carbon Dioxide 25 (22-32) mmol/L BUN 8 (7-17) mg/dL Creatinine 0.57 (0.52-1.04) mg/dL Estimated GFR > 60 (>60) mL/min BUN/Creatinine Ratio 14.0 (6-22) Glucose 98 (70-100) mg/dL Calcium 9.5 (8.4-10.2) mg/dL Magnesium 1.8 (1.6-2.3) mg/dL Total Bilirubin 1.6 H (0.2-1.3) mg/dL AST 19 (14-36) IU/L ALT 15 (<35) IU/L Alkaline Phosphatase 48 (38-126) U/L Total Creatine Kinase 61 (30-135) U/L CK-MB (CK-2) TNP CK-MB (CK-2) Rel Index TNP Troponin I < 0.012 (0.01-0.034) ng/mL Total Protein 8.0 (6.3-8.2) g/dL Albumin 4.7 (3.5-5.0) g/dL Globulin 3.3 (1.7-4.1) g/dL Albumin/Globulin Ratio 1.4 (1.0-2.8) Lipase 39 (23-300) U/L MDM Narrative Medical decision making narrative: 27-year-old female presents to the ED with 1 day of dizziness. Physical exam is reassuring and patient is neurologically intact. Patient's symptoms most likely due to BPPV. Patient is no longer feeling dizzy in the ED. will prescribe meclizine for future episodes of dizziness. Counseled patient on effects of meclizine on , to exercise caution since baby can get sleepy. ED return precautions were discussed with patient. Patient verbalized understanding. Recommend follow-up with PCP as soon as possible. Medical records reviewed: Yes <Bacilio Borrero MD - Last Filed: 07/24/22 12:37> Lab Data Labs: Lab Results 07/19/22 07/19/22 07/19/22 Range/Units 14:37 14:37 14:37 WBC 7.2 (4.5-11.0) X10^3/uL RBC 4.16 (4.0-5.2) X10^6/uL Hgb 12.7 (12.0-16.0) g/dL Hct 37.2 (36-46) % MCV 89.2 (80-100) fL MCH 30.5 (26-34) PG MCHC 34.2 (30-36) % RDW 12.8 (11.6-14.8) % Plt Count 311 (150-400) X10^3/uL Neut % (Auto) 61.5 (50-75) % Lymph % (Auto) 32.3 (25-40) % [place] % (Auto) 4.8 (3-14) % Eos % (Auto) 1.0 L (2-4) % Baso % (Auto) 0.4 (0-2) % Neut # (Auto) 4400 (9476-4046) /uL Lymph # (Auto) 2300 (8011-1183) /uL [place] # (Auto) 300 (0-900) /uL Eos # (Auto) 100 (0-450) /uL Baso # (Auto) 0 (0-100) /uL PT 13.4 H (10.1-12.7) SECONDS INR 1.2 (0.9-1.3) APTT 32 (26-36) SECONDS Sodium 137 (137-145) mmol/L Potassium 3.6 (3.4-5.1) mmol/L Chloride 102 (98-107) mmol/L Carbon Dioxide 25 (22-32) mmol/L BUN 8 (7-17) mg/dL Creatinine 0.57 (0.52-1.04) mg/dL Estimated GFR > 60 (>60) mL/min BUN/Creatinine Ratio 14.0 (6-22) Glucose 98 (70-100) mg/dL Calcium 9.5 (8.4-10.2) mg/dL Magnesium 1.8 (1.6-2.3) mg/dL Total Bilirubin 1.6 H (0.2-1.3) mg/dL AST 19 (14-36) IU/L ALT 15 (<35) IU/L Alkaline Phosphatase 48 (38-126) U/L Total Creatine Kinase 61 (30-135) U/L CK-MB (CK-2) TNP CK-MB (CK-2) Rel Index TNP Troponin I < 0.012 (0.01-0.034) ng/mL Total Protein 8.0 (6.3-8.2) g/dL Albumin 4.7 (3.5-5.0) g/dL Globulin 3.3 (1.7-4.1) g/dL Albumin/Globulin Ratio 1.4 (1.0-2.8) Lipase 39 (23-300) U/L Discharge Plan Departure Patient Disposition: Home Clinical Impression: Benign paroxysmal positional vertigo Instructions: DI for Vertigo Activity Restrictions/Additional Instructions: You were evaluated in the ED today for some dizziness. Based on your signs and symptoms, it appears you had some vertigo which is since then subsided. You are being prescribed meclizine in case you have future episodes of dizziness. Return to the ED if you note any chest pain or shortness of breath. Please follow-up with your PCP as soon as possible. Prescriptions: New meclizine 12.5 mg tablet 12.5 mg PO TID PRN (Reason: dizziness) Qty: 20 0RF No Action clotrimazole 1 % cream 1 applic topical TID Qty: 30 0RF mupirocin 2 % ointment 1 applic topical TID Qty: 22 0RF omeprazole 20 mg capsule,delayed release(DR/EC) 20 mg PO DAILY Qty: 20 0RF ondansetron 4 mg tablet,disintegrating 4 mg PO Q8H PRN (Reason: nausea and vomiting) Qty: 10 0RF Referrals: Samreen Virk ARNP [Primary Care Provider] - Stand Alone Forms: Patient Portal/API <Bacilio Borrero MD - Last Filed: 07/24/22 12:37> [facility] I was immediately available in the department for consultation. This documentation has been reviewed and I agree with assessment and plan. Supervised by Bacilio Borrero MD
== END 2022-07-19 16:52 | disposition home or self-care (01) ==
PROVIDERS: Emergency Medicine; Emergency Provider Student in an Organized Health Care Education/Training Program; Family Provider Nurse Practitioner Obstetrics & Gynecology; PCP Nurse Practitioner Obstetrics & Gynecology
DX: H81.10 Benign paroxysmal vertigo, unspecified ear (principal); R07.9 Chest pain, unspecified
CPT/HCPCS: 36415; 71045; 80053; 82550; 82948; 83690; 83735; 84484; 85025; 85610; 85730; 93005; 93010; 99283; 99284

== ENCOUNTER 2023-10-01 02:36 | Observation (INO) | payer OTHER, MEDICAID, SELFPAY ==
[2023-10-01] VITALS (39 sets, daily range): BP systolic 86–112; BP diastolic 47–65; PULSE 61–108; RESP 12–18; TEMP 36.4–37; O2SAT 93–100; BMI 23.8
[2023-10-01 03:18] LABS: Add Manual Diff / Slide Review NO; Basophils Absolute Auto 0 /uL (0-100); Basophils Percent Auto 0.3 % (0-2); Eosinophils Absolute Auto 0 /uL (0-450); Hematocrit 34.9 % (36-46); Hemoglobin 11.9 g/dL (12.0-16.0); Lymphocytes Absolute Auto 800 /uL (1100-4500); Lymphocytes Percent Auto 5.4 % (25-40); Mean Corpuscular Hemoglobin 30.4 PG (26-34); Mean Corpuscular Volume 89.4 fL (80-100); Monocytes Absolute Auto 400 /uL (0-900); Monocytes Percent Auto 2.8 % (3-14); Neutrophils Absolute Auto 13800 /uL (1500-7000); Neutrophils Percent Auto 91.5 % (50-75); Platelet Count 273 X10^3/uL (150-400); Red Cell Distribution Width 12.9 % (11.6-14.8); White Blood Cell Count 15.1 X10^3/uL (4.5-11.0)
[2023-10-01] MEDS: SODIUM CHLORIDE 0.9% 1,000 ML 1000 ML IV ×2 (03:23→03:58)
[2023-10-01] MEDS: ONDANSETRON 4 MG/2 ML INJ IV (03:23)
[2023-10-01 03:37] LABS: Alanine Aminotransferase 14 IU/L (<35); Albumin 4.5 g/dL (3.5-5.0); Albumin Globulin Ratio 1.3 (1.0-2.8); Alkaline Phosphatase 48 U/L (38-126); Aspartate Aminotransferase 22 IU/L (14-36); BUN Creatinine Ratio 22.4 (6-22); Bilirubin Total 1.7 mg/dL (0.2-1.3); Blood Urea Nitrogen 15 mg/dL (7-17); Calcium 9.3 mg/dL (8.4-10.2); Carbon Dioxide 23 mmol/L (22-32); Chloride 104 mmol/L (98-107); Estimated Glomerular Filt Rate > 60 mL/min (>60); Globulin 3.4 g/dL (1.7-4.1); Glucose 124 mg/dL (70-100); HEMOLYSIS < 15 (0-50); Potassium 3.8 mmol/L (3.4-5.1); Sodium 136 mmol/L (137-145); Total Protein 7.9 g/dL (6.3-8.2)
--- NOTE | 2023-10-01 03:52 | DI.CT.S_ITS ---
PROCEDURE: CT ABDOMEN PELVIS WO CON INDICATIONS: abd pain TECHNIQUE: Axial sections were acquired from the lung bases to the pubic symphysis. Coronal and sagittal reformats were performed. For radiation dose reduction, the following was used: automated exposure control, adjustment of mA and/or kV according to patient size. COMPARISON: None. FINDINGS: Lower thorax: The lung bases are clear. Heart size normal. No hiatal hernia. Liver: Normal in size and attenuation. No contour deformity present. Biliary system: No calcified cholelithiasis or pericholecystic inflammation. No intra or extrahepatic bile duct dilatation. Pancreas: Unremarkable without mass or inflammation evident. Spleen: Normal in size and density. Adrenals: Normal morphology and density. Reproductive system: Unremarkable as visualized. Right ovarian cystic change Urinary system: Normal renal size and attenuation. No renal calculi, hydronephrosis, or solid mass present. Urinary bladder unremarkable. Gastrointestinal system: The bowel is unremarkable without evidence of bowel obstruction or inflammation. The stomach appears unremarkable. Appendix: Dilated appendix is associated with a 7 x 6 mm appendicolith at its base. The appendix is dilated up to 10 mm with mild periappendiceal inflammatory change. Appendix is in the subhepatic right upper quadrant Peritoneal spaces: No mesenteric or retroperitoneal adenopathy. No free air. No free fluid. Vasculature: The IVC, aorta and iliac vasculature are unremarkable. Abdominal wall: Abdominal wall intact without evidence of ventral or inguinal hernias. Musculoskeletal: Normal bone mineralization. No acute fractures. IMPRESSION: Early appendicitis associated with base appendicolith. No abscess, perforation or bowel obstruction. Note: This final report is concordant with the preliminary after-hours interpretation provided by [employer] Approved by: Patricio Grider M.D. on 10/01/2023 at 9:31
--- NOTE | 2023-10-01 03:53 | PC.NURSE ---
Dilaudid held due to low BP's. BP still low 93/56 after 1liter NS. Pt states she feels no better. Dr Chambers made aware, plan to give a 2nd liter bolus and toradol.
[2023-10-01] MEDS: KETOROLAC 30 MG/ML VIAL 15 MG IV (03:58)
--- NOTE | 2023-10-01 04:13 | ED.GENADULT ---
HPI - General Adult General Chief complaint: Abdominal Pain Stated complaint: NVD Time Seen by Provider: 10/01/23 02:51 Source: patient Mode of arrival: Ambulatory History of Present Illness HPI narrative: Otherwise healthy 28-year-old woman who started having significant abdominal pain approximately 9:00 p.m. this evening. Notes increasing periumbilical abdominal pain. No fevers, cough, chills. She did have a bowel movement this morning that was unremarkable. Does not suspect that she currently is Related Data Previous Rx's Medication Instructions Recorded meclizine 12.5 mg tablet 12.5 mg PO TID PRN dizziness #20 07/19/22 tabs hydrocortisone acetate 25 mg 25 mg PA BID PRN hemorrhoids #24 ea 05/18/23 rectal suppository (Anusol-HC) nitroglycerin 0.4 % (w/w) rectal 1 inch PA BID #30 grams 06/15/23 ointment Allergies Allergy/AdvReac Type Severity Reaction Status Date / Time No Known Drug Allergies Allergy Verified 05/18/23 11:01 Review of Systems Review of Systems Narrative: Pertinent positive and negative findings as per HPI Patient History Medical History Asthma Allergies Depression Anxiety Headache Shoulder pain Chronic back pain Irritable bowel syndrome (~2021) Hemorrhoid (~2021) Social History Smoking Status: Never smoker Smoking Status: Never smoker alcohol intake frequency: 0-2 drinks per day Substance Use Type: does not use Exam Initial Vital Signs Initial Vital Signs: Vital Signs Temperature 97.9 F 10/01/23 02:49 Pulse Rate 74 10/01/23 02:49 Respiratory Rate 18 10/01/23 02:49 Blood Pressure 87/57 L 10/01/23 02:49 Pulse Oximetry 100 10/01/23 02:49 Oxygen Delivery Method Room Air 10/01/23 02:49 General: Fatigued, slightly dehydrated circles under her eyes however able to give a complete and coherent history HEENT: Dry mucous membranes, normal sclera with reactive pupils, Respiratory: Lungs are clear to auscultation, no wheezing no rales no rhonchi. Full and symmetrical air movement Cardiac: Regular rate and rhythm no murmurs no bruits Abdomen: Soft, complaining of diffuse abdominal pain but no significant pain elicited with palpation. No flank pain Skin: Warm and dry, no rashes Neurologic: Grossly neurologically intact with no obvious asymmetries or abnormalities Extremities: No trauma, well perfused Psych: Cooperative, appropriate insight and affect Course Orders Ordered: ED Orders 10/01/23 03:10 Complete Blood Count AUTO DIFF Stat Comprehensive Metabolic Panel Stat Test Serum,Qual Stat 10/01/23 03:52 CT abdomen pelvis wo con Stat 10/01/23 04:40 Urine Microscopic Stat Hydromorphone HCl (Hydromorphone 0.5 Mg Inj) 0.5 mg IV Q15MIN PRN PRN Reason: Pain, Discontinued Medications Sodium Chloride (Normal Saline 0.9%) 1,000 mls @ 1,000 mls/hr IV BOLUS ONE Stop: 10/01/23 04:11 Last Infusion: 10/01/23 03:55 Dose: Infused Documented By: Admin: 10/01/23 03:23 Dose: 1,000 mls/hr Documented By: JENNY Sodium Chloride (Normal Saline 0.9%) 1,000 mls @ 1,000 mls/hr IV BOLUS ONE Stop: 10/01/23 04:51 Last Admin: 10/01/23 03:58 Dose: 1,000 mls/hr Documented By: JENNY Piperacillin Sod/Tazobactam (Sod 4.5 gm/ Sodium Chloride) 100 mls @ 200 mls/hr IV NOW ONE Stop: 10/01/23 05:53 Last Admin: 10/01/23 06:00 Dose: 200 mls/hr Ketorolac Tromethamine (Ketorolac 30 Mg/Ml Vial) 15 mg IV NOW ONE Stop: 10/01/23 03:53 Last Admin: 10/01/23 03:58 Dose: 15 mg Documented By: JENNY Ondansetron HCl (Ondansetron 4 Mg/2 Ml Inj) 4 mg IV NOW ONE Stop: 10/01/23 03:13 Last Admin: 10/01/23 03:23 Dose: 4 mg Documented By: JENNY Vital Signs Vital signs: Vital Signs - 8 hr 10/01/23 02:49 10/01/23 03:27 10/01/23 03:28 Temperature 97.9 F Pulse Rate 74 66 Respiratory Rate 18 Blood Pressure 87/57 L 89/51 L Pulse Oximetry 100 100 Oxygen Delivery Method Room Air 10/01/23 03:30 10/01/23 03:45 10/01/23 03:52 Temperature Pulse Rate 82 66 93 H Respiratory Rate Blood Pressure 93/56 L Pulse Oximetry 100 100 100 Oxygen Delivery Method 10/01/23 03:52 10/01/23 04:00 10/01/23 04:00 Temperature Pulse Rate 70 Respiratory Rate Blood Pressure 93/56 L 105/59 L Pulse Oximetry 100 Oxygen Delivery Method 10/01/23 04:15 10/01/23 04:30 10/01/23 04:47 Temperature Pulse Rate 63 99 H 76 Respiratory Rate Blood Pressure Pulse Oximetry 100 100 100 Oxygen Delivery Method 10/01/23 04:51 10/01/23 04:51 10/01/23 05:00 Temperature Pulse Rate 82 Respiratory Rate Blood Pressure 101/58 L 101/55 L Pulse Oximetry 100 Oxygen Delivery Method 10/01/23 05:00 10/01/23 05:15 10/01/23 05:30 Temperature Pulse Rate 84 85 Respiratory Rate Blood Pressure 99/62 Pulse Oximetry 99 98 Oxygen Delivery Method 10/01/23 05:30 10/01/23 05:45 Temperature Pulse Rate 96 H 91 H Respiratory Rate Blood Pressure Pulse Oximetry 98 98 Oxygen Delivery Method Medical Decision Making Lab Data 10/01/23 03:10 10/01/23 03:10 Labs: Lab Results 10/01/23 10/01/23 Range/Units 03:10 04:40 WBC 15.1 H (4.5-11.0) X10^3/uL RBC 3.90 L (4.0-5.2) X10^6/uL Hgb 11.9 L (12.0-16.0) g/dL Hct 34.9 L (36-46) % MCV 89.4 (80-100) fL MCH 30.4 (26-34) PG MCHC 34.0 (30-36) % RDW 12.9 (11.6-14.8) % Plt Count 273 (150-400) X10^3/uL Neut % (Auto) 91.5 H (50-75) % Lymph % (Auto) 5.4 L (25-40) % [place] % (Auto) 2.8 L (3-14) % Eos % (Auto) 0.0 L (2-4) % Baso % (Auto) 0.3 (0-2) % Neut # (Auto) 35755 H (0048-2247) /uL Lymph # (Auto) 800 L (7373-7733) /uL [place] # (Auto) 400 (0-900) /uL Eos # (Auto) 0 (0-450) /uL Baso # (Auto) 0 (0-100) /uL Sodium 136 L (137-145) mmol/L Potassium 3.8 (3.4-5.1) mmol/L Chloride 104 (98-107) mmol/L Carbon Dioxide 23 (22-32) mmol/L BUN 15 (7-17) mg/dL Creatinine 0.67 (0.52-1.04) mg/dL Estimated GFR > 60 (>60) mL/min BUN/Creatinine Ratio 22.4 H (6-22) Glucose 124 H (70-100) mg/dL Calcium 9.3 (8.4-10.2) mg/dL Total Bilirubin 1.7 H (0.2-1.3) mg/dL AST 22 (14-36) IU/L ALT 14 (<35) IU/L Alkaline Phosphatase 48 (38-126) U/L Total Protein 7.9 (6.3-8.2) g/dL Albumin 4.5 (3.5-5.0) g/dL Globulin 3.4 (1.7-4.1) g/dL Albumin/Globulin Ratio 1.3 (1.0-2.8) Serum , Qual Negative (Negative) Urine RBC 0-1/hpf (0-5/HPF) Urine WBC 0-1/hpf (0-5/HPF) Ur Squamous Epith Cells 5-10 /hpf H (0-5/HPF) Amorphous Sediment 2+ Urine Bacteria Few (2-10) H (None) Urine Mucus 1+ H (Negative) Ur Culture Indicated? Cult not indicated Vol Urine Centrifuged 10ml (spun) Point of Care Testing Test Results Negative Urine Dip Bedside Urine Glucose Negative Bedside Urine Bilirubin - Negative Bedside Urine Ketone +++ 80 Urine Specific [place] 1.015 Bedside Urine Occult Blood - Negative Bedside Urine pH 8.0 Bedside Urine Protein - Negative Bedside Urine Urobilinogen - Negative Bedside Urine Nitrite - Negative Bedside Urine Leukocytes - Negative Esterase Point of care testing: Point of Care Testing Test Results Negative Urine Dip Bedside Urine Glucose Negative Bedside Urine Bilirubin - Negative Bedside Urine Ketone +++ 80 Urine Specific [place] 1.015 Bedside Urine Occult Blood - Negative Bedside Urine pH 8.0 Bedside Urine Protein - Negative Bedside Urine Urobilinogen - Negative Bedside Urine Nitrite - Negative Bedside Urine Leukocytes - Negative Esterase MDM Narrative Medical decision making narrative: CC: Periumbilical pain with nausea and vomiting Data collected from: patient, mother Differential considered: Gastroenteritis, gallbladder disease, appendicitis, manager programming complication, diverticulitis, colitis, irritable bowel Exam documented above, pertinent findings include: Patient appears uncomfortable, slightly dehydrated with circles under her eyes, mild periumbilical pain certainly not acute surgical abdomen Lab Test results independently reviewed as above. Pertinent findings: CBC shows significant leukocytosis at 15.1 with 91.5% neutrophils. Slight anemia at 11.9 and 34.9 Chemistries are notable for a bilirubin 1.7. About a year ago had been elevated at 1.6. Remainder of LFTs are unremarkable. Normal renal function Quantitative serum is unremarkable Imaging studies independently reviewed: CT scan shows subhepatic appendix which is dilated with appendicolith and minimal periappendiceal inflammatory changes. Findings are suggestive of early acute appendicitis. No periappendiceal focal drainable collection or pneumoperitoneum. Consultations: Care is discussed with Dr. Velasquez. He requests warehouse driver be contacted with case added on at 10:[address] Finley as the surgeon. Treatments: 2 L of fluid, Zofran, Toradol. Zosyn Re-evaluations: Patient remains relatively hypotensive without be dizzy or tachycardic Discussion: 28-year-old woman with increasing periumbilical abdominal pain, leukocytosis, relative hypotension with CT scan showing subhepatic appendix with appendicolith consistent with acute appendicitis. Zosyn is added. Findings reviewed with the patient and her mother. Patient will be admitted to Dr. Velasquez's service with anticipation of surgical intervention later this morning. Questions are answered and patient is safe for transfer to the floor. Transition orders are written. Discharge Plan Departure Patient Disposition: Admitted as Observation Clinical Impression: Acute appendicitis Qualifiers: Acute appendicitis type: with localized peritonitis Appendicitis gangrene presence: without gangrene Appendicitis perforation presence: without perforation Appendicitis abscess presence: without abscess Qualified Code(s): K35.30 - Acute appendicitis with localized peritonitis, without perforation or gangrene Admit Date/Time: 10/01/23 05:59 Admit Provider: Melecio Velasquez
[2023-10-01 04:16] LABS: Pregnancy Test Serum,Qual Negative (Negative)
[2023-10-01 05:03] LABS: Amorphous Sediment Urine 2+; Bacteria Urine Few (2-10); RBC Urine 0-1/HPF (0-5/HPF); Squamous Epithelial Cell Urine 5-10 /HPF (0-5/HPF); Urine Volume 10mL (spun); WBC Urine 0-1/HPF (0-5/HPF)
[2023-10-01 05:04] LABS: Mucus Urine 1+ (Negative)
[2023-10-01 05:05] LABS: Culture Indicated Urine Cult Not Indicated
[2023-10-01] MEDS: PIPERACILLIN/TAZO 4.5 GM in SODIUM CHLORIDE 0.9% 100 ML IV (06:00)
[2023-10-01] MEDS: SODIUM CHLORIDE 0.9% 1,000 ML 125 ML IV (06:46)
[2023-10-01] MEDS: HYDROMORPHONE 0.5 MG INJ IV (08:52)
--- NOTE | 2023-10-01 09:40 | P.HP_ITS ---
History of Present Illness History of Present Illness Date Patient Seen: 10/01/23 Time Patient Seen: 09:40 Chief complaint: NVD Narrative: Holly Fuller is a 28-year-old woman who presented to the emergency department overnight complaining of several hours of periumbilical abdominal pain. She was at the movies eating some popcorn when she first noticed the pain. A CT scan was performed in the ER which shows a dilated, mildly inflamed appendix in the right upper quadrant with an appendicolith. She has never had abdominal surgery before. [facility] Medical History Asthma Allergies Depression Anxiety Headache Shoulder pain Chronic back pain Irritable bowel syndrome (~2021) Hemorrhoid (~2021) Social History Smoking Status: Never smoker Meds Home Medications and Allergies Home Medications Medication Instructions Recorded Confirmed Type meclizine 12.5 mg tablet 12.5 mg PO TID PRN dizziness #20 07/19/22 05/18/23 Rx tabs hydrocortisone acetate 25 mg 25 mg DC BID PRN hemorrhoids #24 ea 05/18/23 05/18/23 Rx rectal suppository (Anusol-HC) nitroglycerin 0.4 % (w/w) rectal 1 inch DC BID #30 grams 06/15/23 06/15/23 Rx ointment Allergies Allergy/AdvReac Type Severity Reaction Status Date / Time No Known Drug Allergies Allergy Verified 05/18/23 11:01 Exam Vital Signs (past 8 hours): - 10/01/23 02:49 10/01/23 03:27 10/01/23 03:28 Temperature 97.9 F Pulse Rate 74 66 Respiratory Rate 18 Blood Pressure 87/57 L 89/51 L Pulse Oximetry 100 100 Oxygen Delivery Method Room Air 10/01/23 03:30 10/01/23 03:45 10/01/23 03:52 Temperature Pulse Rate 82 66 93 H Respiratory Rate Blood Pressure 93/56 L Pulse Oximetry 100 100 100 Oxygen Delivery Method 10/01/23 03:52 10/01/23 04:00 10/01/23 04:00 Temperature Pulse Rate 70 Respiratory Rate Blood Pressure 93/56 L 105/59 L Pulse Oximetry 100 Oxygen Delivery Method 10/01/23 04:15 10/01/23 04:30 10/01/23 04:47 Temperature Pulse Rate 63 99 H 76 Respiratory Rate Blood Pressure Pulse Oximetry 100 100 100 Oxygen Delivery Method 10/01/23 04:51 10/01/23 04:51 10/01/23 05:00 Temperature Pulse Rate 82 Respiratory Rate Blood Pressure 101/58 L 101/55 L Pulse Oximetry 100 Oxygen Delivery Method 10/01/23 05:00 10/01/23 05:15 10/01/23 05:30 Temperature Pulse Rate 84 85 Respiratory Rate Blood Pressure 99/62 Pulse Oximetry 99 98 Oxygen Delivery Method 10/01/23 05:30 10/01/23 05:45 10/01/23 06:00 Temperature Pulse Rate 96 H 91 H 81 Respiratory Rate Blood Pressure Pulse Oximetry 98 98 97 Oxygen Delivery Method 10/01/23 06:00 10/01/23 06:15 10/01/23 06:30 Temperature Pulse Rate 91 H 90 Respiratory Rate Blood Pressure 98/58 L Pulse Oximetry 99 98 Oxygen Delivery Method 10/01/23 06:31 10/01/23 06:31 10/01/23 07:00 Temperature Pulse Rate 79 93 H Respiratory Rate Blood Pressure 98/64 Pulse Oximetry 98 99 Oxygen Delivery Method Room Air 10/01/23 07:00 10/01/23 07:15 10/01/23 07:30 Temperature Pulse Rate 78 68 Respiratory Rate Blood Pressure 101/63 Pulse Oximetry 99 98 Oxygen Delivery Method 10/01/23 07:30 10/01/23 07:45 10/01/23 08:00 Temperature Pulse Rate 69 61 Respiratory Rate Blood Pressure 94/54 L Pulse Oximetry 98 97 Oxygen Delivery Method 10/01/23 08:00 10/01/23 08:15 10/01/23 08:30 Temperature Pulse Rate 64 Respiratory Rate Blood Pressure 97/59 L 93/56 L Pulse Oximetry 97 Oxygen Delivery Method 10/01/23 08:30 10/01/23 08:45 10/01/23 08:46 Temperature Pulse Rate 62 77 68 Respiratory Rate Blood Pressure Pulse Oximetry 97 93 100 Oxygen Delivery Method 10/01/23 08:46 10/01/23 09:00 10/01/23 09:00 Temperature Pulse Rate 72 Respiratory Rate Blood Pressure 108/59 L 112/65 Pulse Oximetry 97 Oxygen Delivery Method Oxygen Delivery Method Room Air Narrative Exam Narrative: Tender to palpation in the right upper quadrant without jose peritonitis Objective Labs 10/01/23 03:10 10/01/23 03:10 Labs: Laboratory Results - last 24 hr 10/01/23 10/01/23 03:10 04:40 WBC 15.1 H RBC 3.90 L Hgb 11.9 L Hct 34.9 L MCV 89.4 MCH 30.4 MCHC 34.0 RDW 12.9 Plt Count 273 Neut % (Auto) 91.5 H Lymph % (Auto) 5.4 L Moffat % (Auto) 2.8 L Eos % (Auto) 0.0 L Baso % (Auto) 0.3 Neut # (Auto) 40352 H Lymph # (Auto) 800 L Moffat # (Auto) 400 Eos # (Auto) 0 Baso # (Auto) 0 Sodium 136 L Potassium 3.8 Chloride 104 Carbon Dioxide 23 BUN 15 Creatinine 0.67 Estimated GFR > 60 BUN/Creatinine Ratio 22.4 H Glucose 124 H Calcium 9.3 Total Bilirubin 1.7 H AST 22 ALT 14 Alkaline Phosphatase 48 Total Protein 7.9 Albumin 4.5 Globulin 3.4 Albumin/Globulin Ratio 1.3 Serum , Qual Negative Urine RBC 0-1/hpf Urine WBC 0-1/hpf Ur Squamous Epith Cells 5-10 /hpf H Amorphous Sediment 2+ Urine Bacteria Few (2-10) H Urine Mucus 1+ H Ur Culture Indicated? Cult not indicated Vol Urine Centrifuged 10ml (spun) Assessment & Plan Assessment and plan (1) Acute appendicitis: Qualifiers: Acute appendicitis type: with localized peritonitis Appendicitis abscess presence: without abscess Appendicitis gangrene presence: without gangrene Appendicitis perforation presence: without perforation Qualified Code(s): K35.30 - Acute appendicitis with localized peritonitis, without perforation or gangrene Status: Acute Plan Holly is a 28-year-old woman with acute uncomplicated appendicitis. We discussed the risks and benefits laparoscopic appendectomy versus antibiotic therapy for acute, uncomplicated appendicitis. She would like to proceed with surgery. She had a dose of Zosyn at 6:00 a.m. in the ER. Time-Based Coding :: [TOTAL MINUTES] spent with patient and on the chart (including review of chart, obtaining history, exam, reviewing outside data, placing orders, documenting exam and treatment plan, and counseling patient) on [DATE].
[2023-10-01] MEDS: LACTATED RINGERS 1,000 ML 42 ML IV ×2 (09:53→11:19)
--- NOTE | 2023-10-01 10:26 | SUR.OPER ---
Supine on padded OR bed, head on pillow, right arm secured on padded arm board at <90 degrees abduction, left arm padded and tucked at side, legs uncrossed, safety belt at thigh, tape over blanket over lower legs.
[2023-10-01] MEDS: BUPIVACAINE 0.5% (PF) 30 ML, EPINEPHrine 0.15 MG INJ (10:33)
--- NOTE | 2023-10-01 10:49 | PM.OP.1 ---
Operative Date/Time/Diagnoses Date of procedure: 10/01/23 Time of procedure: 10:50 Pre-op diagnosis: Acute appendicitis Post-op diagnosis: same Procedure & Clinicians Procedure: Laparoscopic appendectomy Same procedure as scheduled: Yes Surgeon: Doug Finley Anesthesia Type: General Operative Notes Procedure in detail: The patient was on IV antibiotics. The patient was brought to the operating room, placed on the table in the supine position and general endotracheal anesthesia was induced. A time-out was performed. The abdomen was prepped and draped in the usual fashion. After injection of local anesthetic a 1 cm infraumbilical incision was created with a 15 blade scalpel. The umbilical stalk was grasped with a Deidra clamp to elevate the abdominal wall. The infraumbilical midline fascia was cleared over 1 cm and the fascia was scored with cautery. The peritoneum was pierced with a Peon clamp. The Katja port was placed and the abdomen was insufflated to 15 mmHg. The camera was inserted and there was no evidence of any injury from the entry. Next, 5 mm ports were placed in the left upper quadrant and right midabdomen under direct vision. The patient was placed in reverse Trendelenburg with the right-side elevated. The terminal ileum was swept away from the cecum and the appendix was visualized just lateral to the gallbladder. The appendix was inflamed and distended but not perforated and there was no evidence of gangrene. The cecum and the appendix were noted to be in the right upper quadrant, lateral to the gallbladder consistent with the CT scan. The mesoappendix was divided with the Power-seal. Two PDS Endoloops were placed at the base and a 3rd endoloop was placed about a centimeter distally and the appendix was divided sharply. The specimen was placed in a Endo-Catch bag. A small amount of fluid with suctioned from the base of the appendix and pelvis. The table was flattened and the terminal ileum and omentum were allowed to slide in over the appendiceal stump. Finally, the 5 mm ports were removed under direct vision. The pneumoperitoneum was released and the Katja port was removed followed by the Endo-Catch bag. Additional local was injected into the fascia and the infraumbilical incision was closed with 2 interrupted 2-0 Vicryl sutures. The skin incisions were closed with 4 Monocryl. Steri-Strips were applied followed by Band-Aids. EBL: 5 mL Specimen: Appendix Post-operative Condition: stable Disposition: PACU
[2023-10-01] MEDS: fentaNYL 100 MCG/2 ML INJ IV (11:10)
[2023-10-01] MEDS: hydrOXYzine 50 MG/ML INJ 25 MG IM (11:10)
== END 2023-10-01 12:47 | disposition home or self-care (01) ==
LOC: ED 02:51 → AC 06:02
PROVIDERS: Surgery; Admitting Provider Surgery; Emergency Provider Emergency Medicine; Family Provider Nurse Practitioner Obstetrics & Gynecology; PCP Family Medicine; Visit Provider Surgery
PROC: 0DTJ4ZZ Resection of Appendix, Percutaneous Endoscopic Approach (ICD-10-PCS; CPT 44970; principal; 2023-10-01 10:00)
DX: R10.33 Periumbilical pain (principal); K35.80 Unspecified acute appendicitis
CPT/HCPCS: 44970; 36415; 74176; 80053; 81003; 81015; 81025; 84703; 85025; 96361; 96365; 96375; 99222; 99284; G0378; J0171; J0330; J1100; J1170; J1885; J2250; J2405; J2543; J2704; J3010; J3410; J3490

== ENCOUNTER 2023-12-03 13:08 | Emergency (ER) | payer OTHER, MEDICAID, SELFPAY ==
[2023-12-03 13:18] VITALS: BP 95/55; PULSE 78; RESP 16; TEMP 37.1; O2SAT 97; BMI 24.5
--- NOTE | 2023-12-03 13:20 | DI.RAD.S_ITS ---
PROCEDURE: XR WRIST RT MIN 3V INDICATIONS: fall TECHNIQUE: 4 views of the wrist were acquired. COMPARISON: None. FINDINGS: Bones: No fractures or dislocations. No suspicious bony lesions. Soft tissues: No suspicious soft tissue calcifications. IMPRESSION: No acute bony abnormality. Approved by: Patricio Grider M.D. on 12/03/2023 at 13:19
--- NOTE | 2023-12-03 13:20 | DI.RAD.S_ITS ---
PROCEDURE: XR HAND RT 2V INDICATIONS: fall TECHNIQUE: 3 views of the hand(s) acquired. COMPARISON: None. FINDINGS: Bones: No fractures or dislocations. Carpal bones are normally aligned. No suspicious bony lesions. Soft tissues: No suspicious soft tissue calcifications. IMPRESSION: No acute bony abnormality. Approved by: Patricio Grider M.D. on 12/03/2023 at 13:11
--- NOTE | 2023-12-03 13:30 | ED_ITS ---
HPI - Fall <Angle Roper PA-C - Last Filed: 12/03/23 14:30> General Chief Complaint: Fall Stated Complaint: GLF, R Wrist Pain Time Seen by Provider: 12/03/23 13:30 History of Present Illness HPI Narrative: Patient is a pleasant 28-year-old female right-hand dominant who presents to the emergency room department today with complaints of right hand pain, right thumb pain, 1st webspace pain after falling yesterday after attempting to put a thumb tack up in the ceiling after she was standing on a stool. She has no other physical complaints currently at this time. She has been doing RICE with some minimal relief, however she has not wrapped the hand or splinted the hand. No other further complaints. Related Data Home Medications Medication Instructions Recorded Confirmed minoxidil 5 %-fluocinolone 0.01 ml topical 11/30/23 11/30/23 %-tretinoin 0.025 % topical solution spironolactone 50 mg tablet 50 mg PO DAILY 11/30/23 11/30/23 Allergies Allergy/AdvReac Type Severity Reaction Status Date / Time No Known Drug Allergies Allergy Verified 11/30/23 10:36 Review of Systems <Angle Roper PA-C - Last Filed: 12/03/23 14:30> Review of Systems Narrative: Negative except as above Musculoskeletal Comments: Right thumb pain, 1st web space pain right hand. Patient History <Angle Roper PA-C - Last Filed: 12/03/23 14:30> Medical History Asthma Allergies Depression Anxiety Headache Shoulder pain Chronic back pain Irritable bowel syndrome (~2021) Hemorrhoid (~2021) Social History household members: family Smoking Status: Never smoker Smoking Status: Never smoker alcohol intake frequency: 0-2 drinks per day Substance Use Type: does not use Exam <Angle Roper PA-C - Last Filed: 12/03/23 14:30> Initial Vital Signs Initial Vital Signs: Vital Signs Temperature 98.7 F 12/03/23 13:18 Pulse Rate 78 12/03/23 13:18 Respiratory Rate 16 12/03/23 13:18 Blood Pressure 95/55 L 12/03/23 13:18 Pulse Oximetry 97 12/03/23 13:18 Oxygen Delivery Method Room Air 12/03/23 13:18 Reviewed Const General: cooperative, healthy appearing, comfortable, well developed, well groomed, No acute distress, No in distress and No anxious Nutritional Appearance: average body habitus and well nourished Eyes General: Yes appearance normal, both eyes and all related structures Pupils: PERRL EOM: EOM intact bilaterally Skin Other: Warm pink and dry, there is no bruising, there is no soft tissue swelling, there is no signs of injury. Neuro Other: Cranial nerves are grossly intact. Cognition, speech, gait, sensory is completely normal. Extrem Other: Range of motion, strength, pulses, cap refill preserved in the upper and lower extremities bilaterally. Right upper extremity exam. Cap refill is preserved. Pulses are present. There is no soft tissue swelling there is no ecchymosis, t here is no obvious deformity. The range of motion of the hand is completely normal. Strength is normal. The patient does not have any difficulty with range of motion of the phalanxes. She is some minor discomfort in the 1st webspace on examination. No pain with extension or flexion of the thumb. No obvious deformity. No snuffbox tenderness. Range of motion of the wrist is normal. No forearm tenderness. No elbow tenderness or limited range motion. No humerus pain, and no shoulder discomfort. <Amisha Ramirez DO - Last Filed: 12/04/23 08:16> Initial Vital Signs Initial Vital Signs: Vital Signs Temperature 98.7 F 12/03/23 13:18 Pulse Rate 78 12/03/23 13:18 Respiratory Rate 16 12/03/23 13:18 Blood Pressure 95/55 L 12/03/23 13:18 Pulse Oximetry 97 12/03/23 13:18 Oxygen Delivery Method Room Air 12/03/23 13:18 Scores <Angle Roper PA-C - Last Filed: 12/03/23 14:30> GCS Citation: 15 Course <Angle Roper PA-C - Last Filed: 12/03/23 14:30> Orders Ordered: ED Orders 12/03/23 13:20 XR hand RT 2V Stat XR wrist RT min 3V Stat Vital Signs Vital signs: Vital Signs - 8 hr 12/03/23 13:18 Temperature 98.7 F Pulse Rate 78 Respiratory Rate 16 Blood Pressure 95/55 L Pulse Oximetry 97 Oxygen Delivery Method Room Air Reviewed <Amisha Ramirez DO - Last Filed: 12/04/23 08:16> Orders Ordered: ED Orders 12/03/23 13:20 XR hand RT 2V Stat XR wrist RT min 3V Stat Vital Signs Vital signs: Vital Signs - 8 hr 12/03/23 13:18 Temperature 98.7 F Pulse Rate 78 Respiratory Rate 16 Blood Pressure 95/55 L Pulse Oximetry 97 Oxygen Delivery Method Room Air MDM - Fall <Angle Roper PA-C - Last Filed: 12/03/23 14:30> Imaging Data Extremity x-ray #1: My Impression: X-ray of the right hand and wrist negative for any acute fractures. Radiologist's Impression: [address] [address] XRay Report Signed Patient: Holly Mackay MR#: [id number] : 1995 Acct:[id number] Age/Sex: 28 / F Date of Service: 12/03/23 Loc: ED Accession Number: [id number] Procedure: XR hand RT 2V Ordering Provider: Amisha Ramirez D.O. PROCEDURE: XR HAND RT 2V INDICATIONS: fall TECHNIQUE: 3 views of the hand(s) acquired. COMPARISON: None. FINDINGS: Bones: No fractures or dislocations. Carpal bones are normally aligned. No suspicious bony lesions. Soft tissues: No suspicious soft tissue calcifications. IMPRESSION: No acute bony abnormality. Approved by: Patricio Grider M.D. on 12/03/2023 at 13:11 Extremity x-ray #2: Radiologist's Impression: [address] [address] XRay Report Signed Patient: Holly Mackay MR#: [id number] : 1995 Acct:[id number] Age/Sex: 28 / F Date of Service: 12/03/23 Loc: ED Accession Number: [id number] Procedure: XR hand RT 2V Ordering Provider: Amisha Ramirez D.O. PROCEDURE: XR HAND RT 2V INDICATIONS: fall TECHNIQUE: 3 views of the hand(s) acquired. COMPARISON: None. FINDINGS: Bones: No fractures or dislocations. Carpal bones are normally aligned. No suspicious bony lesions. Soft tissues: No suspicious soft tissue calcifications. IMPRESSION: No acute bony abnormality. Approved by: Patricio Grider M.D. on 12/03/2023 at 13:11 MDM Narrative Medical decision making narrative: 28-year-old female presents to the emergency department today after a fall she sustained yesterday who comes in complaining of right 1st metacarpal, and 1st webspace discomfort and pain. Supportive therapy at home with rest, ice, compression, elevation [id number] support Tylenol for discomfort and pain. Range of motion is not in pared. No soft tissue swelling, no obvious deformity. Exam is negative for any substantial acute findings. X-ray of the right hand negative for any acute fractures X-ray of the right wrist negative for any acute fractures Thumb spica splint Supportive therapy education ED precautions Encouraged to follow up with her primary care doctor for further care and evaluation Differential diagnosis; thumb sprain, gamekeeper's thumb, musculoskeletal discomfort. Discharge Plan Departure Patient Disposition: Home Clinical Impression: Sprain of right thumb Qualifiers: Encounter type: initial encounter Sprain of finger site: metacarpophalangeal joint Qualified Code(s): S63.641A - Sprain of metacarpophalangeal joint of right thumb, initial encounter Activity Restrictions/Additional Instructions: Continue with your current therapy plan rest, ice, compression, elevation Splint for comfort Please follow up with your primary care doctor Prescriptions: No Action spironolactone 50 mg tablet 50 mg PO DAILY [id number] 5-0.01-0.025 % solution topical Referrals: Sheree Isaac DO [Primary Care Provider] - Stand Alone Forms: Patient Portal/API ED Sign-out <Amisha Ramirez DO - Last Filed: 12/04/23 08:16> Cosign ED Attending Cosignature Attestation: I was available for consultation.
[2023-12-03 14:38] VITALS: BP 111/59; PULSE 66; RESP 15; O2SAT 99
== END 2023-12-03 14:38 | disposition home or self-care (01) ==
PROVIDERS: Emergency Provider Physician Assistant; Family Provider Nurse Practitioner Obstetrics & Gynecology; PCP Family Medicine
DX: S63.641A Sprain of metacarpophalangeal joint of right thumb, initial encounter (principal); W18.30XA Fall on same level, unspecified, initial encounter
CPT/HCPCS: 73110; 73120; 99283